=== PATIENT | male | born 1990 | race Caucasian/White ===

== ENCOUNTER 2022-07-03 12:19 | Outpatient (CLI) | payer BC, SELFPAY | END 2022-07-03 12:20 | disposition home or self-care (01) | LOC: AMB 07-12 14:31 | PROVIDERS: Visit Provider Internal Medicine | DX: R55 Syncope and collapse (principal); F10.129 Alcohol abuse with intoxication, unspecified | CPT/HCPCS: A0425; A0427 ==

== ENCOUNTER 2022-07-03 12:34 | Emergency (ER) | payer BC, SELFPAY ==
[2022-07-03] VITALS (37 sets, daily range): BP systolic 106–157; BP diastolic 61–106; PULSE 69–115; RESP 16–22; TEMP 36.3; O2SAT 93–96
[2022-07-03] MEDS: ONDANSETRON 2 MG/ML inj 4 MG IVP (13:21)
[2022-07-03] MEDS: 0.9 % SODIUM CHLORIDE 1000 ml 1,000 ML IV (13:21)
[2022-07-03 13:24] LABS: HCO3 VBG 24 mmol/L (21-28); PCO2 VBG 38 mmHG (40-50); pH VBG 7.404 (7.32-7.43)
[2022-07-03 13:35] LABS: Basophils Absolute Auto 0.02 K/uL (0.00-0.30); Basophils Percent Auto 0.4 % (0.0-3.0); Eosinophils Absolute Auto 0.07 K/uL (0.00-0.50); Eosinophils Percent Auto 1.3 % (0.0-7.0); Hematocrit 41.1 % (37.0-53.0); Hemoglobin* 14.4 gm/dL (13.5-17.5); Immature Granulocytes Abs Auto 0.02 K/uL (0.00-0.30); Immature Granulocytes Pct Auto 0.4 %; Lymphocytes Absolute Auto 1.74 K/uL (0.90-2.90); Lymphocytes Percent Auto 33.5 % (20-44); Mean Corpuscular HGB Conc 35 gm/dL (32-36); Mean Corpuscular Hemoglobin 30 pg (26-34); Mean Corpuscular Volume 86 fL (80-100); Monocytes Percent Auto 5.6 % (0.0-11.0); Neutrophils Absolute Auto 3.06 K/uL (1.7-7.0); Neutrophils Percent Auto 58.8 % (42.0-72.0); Platelet Count* 235 K/uL (140-440); RDW Coefficient of Variation % 12.1 % (11.5-15.5)
[2022-07-03 13:37] LABS: Slide Review Reflex No
[2022-07-03 13:50] LABS: Albumin* 4.2 g/dL (3.3-5.0); Chloride* 109 mmol/L (96-114)
[2022-07-03 13:51] LABS: Potassium* 3.3 mmol/L (3.6-5.1)
[2022-07-03 13:53] LABS: Bilirubin Direct* 0.2 mg/dL (0.0-0.5); Bilirubin Total* 0.6 mg/dL (0.1-1.5); Carbon Dioxide* 21 mmol/L (20-32); Creatinine* 0.7 mg/dL (0.5-1.5); Estimated Glomerular Filt Rate 124 ml/min
[2022-07-03 13:54] LABS: Alanine Aminotransferase* 44 U/L (4-50); Alkaline Phosphatase* 113 U/L (40-150); Aspartate Amino Transferase* 49 U/L (12-35); Blood Urea Nitrogen* 11 mg/dL (5-24); Calcium* 8.4 mg/dL (8.4-10.6); Glucose* 163 mg/dL (60-115); Lipase* 55 U/L (23-300); Total Protein* 6.8 g/dL (6.0-8.3)
[2022-07-03 13:57] LABS: Acetaminophen* < 10.0 ug/mL (10.0-30.0); Salicylate* < 1.0 mg/dL (1.0-10)
[2022-07-03 13:59] LABS: Sodium* 142 mmol/L (135-149)
--- NOTE | 2022-07-03 14:02 | ED.NURSE ---
Pt up ambulatory to BR. Was given UA cup. Pt dropped cup in BR. Urine not obtained. Pt walked back to bed and now resting.
--- NOTE | 2022-07-03 14:45 | ED.NURSE ---
Ambulated to BR with standby assist from security. Pt inquiring about dispo. informed.
[2022-07-03 15:22] LABS: Ethanol* 0.49 % (0.01-0.03)
--- NOTE | 2022-07-03 15:53 | ED.GENADULT ---
HPI - General Adult General Date Seen: 07/03/22 <Cherry Iniguez MD - Last Filed: 07/05/22 19:37> Chief complaint: Alcohol/Intoxication <Cherry Iniguez MD - Last Filed: 07/05/22 19:37> Stated complaint: ETOH <Cherry Iniguez MD - Last Filed: 07/05/22 19:37> Time Seen by Provider: 07/03/22 12:39 <Cherry Iniguez MD - Last Filed: 07/05/22 19:37> Source: EMS and RN notes reviewed <Cherry Iniguez MD - Last Filed: 07/05/22 19:37> Mode of arrival: EMS <Cherry Iniguez MD - Last Filed: 07/05/22 19:37> Limitations: no limitations <Cherry Iniguez MD - Last Filed: 07/05/22 19:37> History of Present Illness HPI narrative: Patient is a 32-year-old male brought in by EMS. Apparently he had called 911 a couple of times and then hung up, then finally connected and said that he wanted a ride to detox. When police got there, he pounded a significant amount of alcohol in front of them. When they got him in the back of their squad car he apparently was reported to be unresponsive and so EMS was called. On arrival here, he does fall asleep but arouses to voice. He is not able to provide any meaningful history however. There is no reported trauma and no visible trauma. Police report that he is staying in an extended stay hotel. No reported overdose. <Cherry Iniguez MD - Last Filed: 07/05/22 19:37> Review of Systems Status of ROS: Reports: unobtainable due to medical condition <Cherry Iniguez MD - Last Filed: 07/05/22 19:37> [facility] Social History: Social History Smoking Status: Unknown if ever smoked <Cherry Iniguez MD - Last Filed: 07/05/22 19:37> Exam Narrative: Exam Narrative: Vital signs as noted above. In general, a somnolent male. Head: Normocephalic, atraumatic. Eyes: Pupils are 7 mm, reactive bilaterally. Conjunctivae are anicteric. ENT: Mucous membranes are moist. Neck: Supple without lymphadenopathy. Heart: Tachycardic and regular. No obvious murmur. Lungs: Clear bilaterally. No increased work of breathing, crackles or wheezes. Abdomen: Soft and seemingly nontender. Nondistended. No organomegaly. Extremities: Well perfused. No edema. Pulses intact. Neurologic: Patient is somnolent, arouses to voice, mumbles. GCS 10. Moves all extremities. Skin: Warm and dry. Well perfused. No visible trauma. <Cherry Iniguez MD - Last Filed: 07/05/22 19:37> Const: Vital Signs, click to edit/add: Vital Signs - 24 hr 07/03/22 12:42 07/03/22 12:57 07/03/22 13:00 Temperature 97.4 F L Pulse Rate 84 89 Pulse Rate [Right Pulse Oximeter] 101 H Respiratory Rate 18 19 18 Blood Pressure 120/83 Blood Pressure [Ri ght Upper Arm] 129/95 H Pulse Oximetry 95 95 93 Oxygen Delivery Ok thod 07/03/22 13:01 07/03/22 13:07 07/03/22 13:05 Temperature Pulse Rate 85 75 Pulse Rate [Right Pulse Oximeter] Respiratory Rate 19 18 Blood Pressure 109/76 Blood Pressure [Ri ght Upper Arm] Pulse Oximetry 93 93 94 Oxygen Delivery Ok thod 07/03/22 13:15 07/03/22 13:20 07/03/22 13:30 Temperature Pulse Rate Pulse Rate [Right Pulse Oximeter] Respiratory Rate 22 20 17 Blood Pressure 147/106 H Blood Pressure [Ri ght Upper Arm] Pulse Oximetry Oxygen Delivery Ok thod 07/03/22 13:35 07/03/22 13:45 07/03/22 14:01 Temperature Pulse Rate 71 Pulse Rate [Right Pulse Oximeter] Respiratory Rate 17 19 20 Blood Pressure 114/84 Blood Pressure [Ri ght Upper Arm] Pulse Oximetry 93 Oxygen Delivery Me thod 07/03/22 14:05 07/03/22 14:15 07/03/22 14:20 Temperature Pulse Rate 69 76 74 Pulse Rate [Right Pulse Oximeter] Respiratory Rate 19 18 18 Blood Pressure 119/86 121/85 Blood Pressure [Ri ght Upper Arm] Pulse Oximetry 93 93 94 Oxygen Delivery Me thod 07/03/22 14:30 07/03/22 14:35 07/03/22 12:36 Temperature Pulse Rate 70 115 H Pulse Rate [Right Pulse Oximeter] Respiratory Rate 17 Blood Pressure 157/82 H Blood Pressure [Ri ght Upper Arm] 106/79 Pulse Oximetry 93 95 Oxygen Delivery Me thod 07/03/22 12:38 07/03/22 12:48 07/03/22 12:58 Temperature Pulse Rate Pulse Rate [Right Pulse Oximeter] 92 87 96 Respiratory Rate 21 19 17 Blood Pressure Blood Pressure [Ri ght Upper Arm] 129/95 H 125/83 120/83 Pulse Oximetry 96 95 95 Oxygen Delivery Me thod 07/03/22 13:03 07/03/22 13:33 07/03/22 16:00 Temperature Pulse Rate 72 Pulse Rate [Right Pulse Oximeter] 74 76 Respiratory Rate 16 17 Blood Pressure Blood Pressure [Ri ght Upper Arm] 109/76 114/84 Pulse Oximetry 95 94 Oxygen Delivery Me thod 07/03/22 16:02 07/03/22 16:15 07/03/22 16:30 Temperature Pulse Rate 70 72 71 Pulse Rate [Right Pulse Oximeter] Respiratory Rate Blood Pressure 108/67 Blood Pressure [Ri ght Upper Arm] Pulse Oximetry 94 94 95 Oxygen Delivery Me thod 07/03/22 16:32 07/03/22 16:45 07/03/22 17:04 Temperature Pulse Rate 72 71 89 Pulse Rate [Right Pulse Oximeter] Respiratory Rate Blood Pressure 110/61 Blood Pressure [Ri ght Upper Arm] Pulse Oximetry 94 95 95 Oxygen Delivery Me thod 07/03/22 17:15 07/03/22 17:30 07/03/22 17:45 Temperature Pulse Rate 76 77 93 Pulse Rate [Right Pulse Oximeter] Respiratory Rate Blood Pressure Blood Pressure [Ri ght Upper Arm] Pulse Oximetry 94 95 96 Oxygen Delivery Me thod Room Air 07/03/22 18:00 07/03/22 18:15 07/03/22 18:30 Temperature Pulse Rate 74 71 73 Pulse Rate [Right Pulse Oximeter] Respiratory Rate Blood Pressure Blood Pressure [Ri ght Upper Arm] Pulse Oximetry 94 94 94 Oxygen Delivery Me thod 07/03/22 18:45 Temperature Pulse Rate 72 Pulse Rate [Right Pulse Oximeter] Respiratory Rate Blood Pressure Blood Pressure [Ri ght Upper Arm] Pulse Oximetry 95 Oxygen Delivery Me thod <Cherry H Block, MD - Last Filed: 07/05/22 19:37> Vital Signs, click to edit/add: Vital Signs - 24 hr 07/03/22 12:42 07/03/22 12:57 07/03/22 13:00 Temperature 97.4 F L Pulse Rate 84 89 Pulse Rate [Right Pulse Oximeter] 101 H Respiratory Rate 18 19 18 Blood Pressure 120/83 Blood Pressure [Ri ght Upper Arm] 129/95 H Pulse Oximetry 95 95 93 Oxygen Delivery Me thod 07/03/22 13:01 07/03/22 13:07 07/03/22 13:05 Temperature Pulse Rate 85 75 Pulse Rate [Right Pulse Oximeter] Respiratory Rate 19 18 Blood Pressure 109/76 Blood Pressure [Ri ght Upper Arm] Pulse Oximetry 93 93 94 Oxygen Delivery Me thod 07/03/22 13:15 07/03/22 13:20 07/03/22 13:30 Temperature Pulse Rate Pulse Rate [Right Pulse Oximeter] Respiratory Rate 22 20 17 Blood Pressure 147/106 H Blood Pressure [Ri ght Upper Arm] Pulse Oximetry Oxygen Delivery Me thod 07/03/22 13:35 07/03/22 13:45 07/03/22 14:01 Temperature Pulse Rate 71 Pulse Rate [Right Pulse Oximeter] Respiratory Rate 17 19 20 Blood Pressure 114/84 Blood Pressure [Ri ght Upper Arm] Pulse Oximetry 93 Oxygen Delivery Me thod 07/03/22 14:05 07/03/22 14:15 07/03/22 14:20 Temperature Pulse Rate 69 76 74 Pulse Rate [Right Pulse Oximeter] Respiratory Rate 19 18 18 Blood Pressure 119/86 121/85 Blood Pressure [Ri ght Upper Arm] Pulse Oximetry 93 93 94 Oxygen Delivery Me thod 07/03/22 14:30 07/03/22 14:35 07/03/22 12:36 Temperature Pulse Rate 70 115 H Pulse Rate [Right Pulse Oximeter] Respiratory Rate 17 Blood Pressure 157/82 H Blood Pressure [Ri ght Upper Arm] 106/79 Pulse Oximetry 93 95 Oxygen Delivery Me thod 07/03/22 12:38 07/03/22 12:48 07/03/22 12:58 Temperature Pulse Rate Pulse Rate [Right Pulse Oximeter] 92 87 96 Respiratory Rate 21 19 17 Blood Pressure Blood Pressure [Ri ght Upper Arm] 129/95 H 125/83 120/83 Pulse Oximetry 96 95 95 Oxygen Delivery Me thod 07/03/22 13:03 07/03/22 13:33 07/03/22 16:00 Temperature Pulse Rate 72 Pulse Rate [Right Pulse Oximeter] 74 76 Respiratory Rate 16 17 Blood Pressure Blood Pressure [Ri ght Upper Arm] 109/76 114/84 Pulse Oximetry 95 94 Oxygen Delivery Me thod 07/03/22 16:02 07/03/22 16:15 07/03/22 16:30 Temperature Pulse Rate 70 72 71 Pulse Rate [Right Pulse Oximeter] Respiratory Rate Blood Pressure 108/67 Blood Pressure [Ri ght Upper Arm] Pulse Oximetry 94 94 95 Oxygen Delivery Me thod 07/03/22 16:32 07/03/22 16:45 07/03/22 17:04 Temperature Pulse Rate 72 71 89 Pulse Rate [Right Pulse Oximeter] Respiratory Rate Blood Pressure 110/61 Blood Pressure [Ri ght Upper Arm] Pulse Oximetry 94 95 95 Oxygen Delivery Me thod 07/03/22 17:15 07/03/22 17:30 07/03/22 17:45 Temperature Pulse Rate 76 77 93 Pulse Rate [Right Pulse Oximeter] Respiratory Rate Blood Pressure Blood Pressure [Ri ght Upper Arm] Pulse Oximetry 94 95 96 Oxygen Delivery Me thod Room Air 07/03/22 18:00 07/03/22 18:15 07/03/22 18:30 Temperature Pulse Rate 74 71 73 Pulse Rate [Right Pulse Oximeter] Respiratory Rate Blood Pressure Blood Pressure [Ri ght Upper Arm] Pulse Oximetry 94 94 94 Oxygen Delivery Me thod 07/03/22 18:45 Temperature Pulse Rate 72 Pulse Rate [Right Pulse Oximeter] Respiratory Rate Blood Pressure Blood Pressure [Ri ght Upper Arm] Pulse Oximetry 95 Oxygen Delivery Me thod <Ok Nguyen MD - Last Filed: 07/03/22 23:51> Documenting provider has reviewed patient's vital signs: yes <Cherry Iniguez MD - Last Filed: 07/05/22 19:37> Course Course Hospital Course: On arrival, patient was placed on the monitor and oximetry. Labs were drawn. Will monitor closely at this time. As of right now, he is rousable, does not seem to need airway management. Blood alcohol returned at 0.49. Other labs fairly unremarkable. Potassium slightly low at 3.3, blood glucose 163. AST was mildly elevated at 49, consistent with his alcohol use. ALT was normal. Remainder of his LFTs were unremarkable. Lipase was normal at 55. Tylenol and alcohol levels were undetectable. Patient slept here for quite a while, he did wake up several hours into his ER course and state that he wanted to go home. I had a conversation with him at that time. He said that he no longer wanted to go to detox, he just wanted to leave. He was still intoxicated at that point, despite the fact that he was ambulatory he was slurring his words and not appropriate for independent discharge home. He did not have anyone who could come be responsible for him, he says he does not have any friends or family in the area. He is staying by himself in his motel. I discussed with him that if he chose to leave the emergency department I would call the police to pick him up as having him walk out in the cold and dark by himself was not safe. He seem to except that as a reason to stay in the emergency department and since then has been cooperative with staying in his room. At this time, we are looking into detox facilities that would accept him on a hold. <Cherry Iniguez MD - Last Filed: 07/05/22 19:37> Reevaluation(s) Reevaluation #1: BAL now 0.33. He is being assessed for Detox. <Ok Nguyen MD - Last Filed: 07/03/22 23:51> Time: 21:04 <Ok Nguyen MD - Last Filed: 07/03/22 23:51> Reevaluation #2: Pt more agitated. [place] police on the scene. <Ok Nguyen MD - Last Filed: 07/03/22 23:51> Time: 21:45 <Ok Nguyen MD - Last Filed: 07/03/22 23:51> Reevaluation #3: Agitation worsening. Risking safety of all. Zyprexa 10 mg given IM. Pt restrained for his own safety. <Ok Nguyen MD - Last Filed: 07/03/22 23:51> Time: 22:44 <Ok Nguyen MD - Last Filed: 07/03/22 23:51> Additional Reevaluation(s): Pt settled down and did not need the Zyprexa or restraints. Transferring now to [place]. <Ok Nguyen MD - Last Filed: 07/03/22 23:51> Vital Signs Vital signs: Initial Vital Signs Blood Pressure 106/79 07/03/22 12:36 Blood Pressure Mean 88 07/03/22 12:36 Vital Signs Blood Pressure 106/79 07/03/22 12:36 Temperature 97.4 F L 07/03/22 12:42 Pulse Rate 72 07/03/22 18:45 Respiratory Rate 17 07/03/22 14:30 Blood Pressure 110/61 07/03/22 16:32 Pulse Oximetry 95 07/03/22 18:45 Oxygen Delivery Method 07/03/22 17:15 <Cherry Iniguez MD - Last Filed: 07/05/22 19:37> Initial Vital Signs Blood Pressure 106/79 07/03/22 12:36 Blood Pressure Mean 88 07/03/22 12:36 Vital Signs Blood Pressure 106/79 07/03/22 12:36 Temperature 97.4 F L 07/03/22 12:42 Pulse Rate 72 07/03/22 18:45 Respiratory Rate 17 07/03/22 14:30 Blood Pressure 110/61 07/03/22 16:32 Pulse Oximetry 95 07/03/22 18:45 Oxygen Delivery Method 07/03/22 17:15 <Ok Nguyen MD - Last Filed: 07/03/22 23:51> Medical Decision Making MDM Narrative Medical decision making narrative: Pt presents intoxicated and semi-obtunded. Found to be intoxicated. BAL too high to go to detox. Pt observed until BAL acceptable. Pt was agitated at times. Police called. Pt calmed down and went to detox. <Ok Nguyen MD - Last Filed: 07/03/22 23:51> Differential Diagnosis Differential Diagnosis: Intoxication, Metabolic abnormality, Drug Ingestion, Sepsis. <Ok Nguyen MD - Last Filed: 07/03/22 23:51> Lab Data Labs: Lab Results 07/03/22 07/03/22 07/03/22 Range/Units 12:45 12:45 12:45 WBC 5.20 (4.50-11.00) K/uL RBC 4.80 (4.30-5.90) m/uL Hgb 14.4 (13.5-17.5) gm/dL Hct 41.1 (37.0-53.0) % MCV 86 (80-100) fL MCH 30 (26-34) pg MCHC 35 (32-36) gm/dL RDW Coeff of Queenie 12.1 (11.5-15.5) % Plt Count 235 (140-440) K/uL Neut % (Auto) 58.8 (42.0-72.0) % Lymph % (Auto) 33.5 (20-44) % [place] % (Auto) 5.6 (0.0-11.0) % Eos % (Auto) 1.3 (0.0-7.0) % Baso % (Auto) 0.4 (0.0-3.0) % Neut # (Auto) 3.06 (1.7-7.0) K/uL Lymph # (Auto) 1.74 (0.90-2.90) K/uL [place] # (Auto) 0.30 (0.00-0.90) K/UL Eos # (Auto) 0.07 (0.00-0.50) K/uL Baso # (Auto) 0.02 (0.00-0.30) K/uL VBG pH 7.404 (7.32-7.43) VBG pCO2 38 L (40-50) mmHG VBG pO2 163.0 H (25-47) mmHG VBG HCO3 24 (21-28) mmol/L Sodium 142 (135-149) mmol/L Potassium 3.3 L (3.6-5.1) mmol/L Chloride 109 (96-114) mmol/L Carbon Dioxide 21 (20-32) mmol/L BUN 11 (5-24) mg/dL Creatinine 0.7 (0.5-1.5) mg/dL Estimated GFR 124 ml/min Glucose 163 H (60-115) mg/dL Calcium 8.4 (8.4-10.6) mg/dL Total Bilirubin 0.6 (0.1-1.5) mg/dL Direct Bilirubin 0.2 (0.0-0.5) mg/dL AST 49 H (12-35) U/L ALT 44 (4-50) U/L Alkaline Phosphatase 113 (40-150) U/L Total Protein 6.8 (6.0-8.3) g/dL Albumin 4.2 (3.3-5.0) g/dL Lipase 55 (23-300) U/L Salicylates < 1.0 L (1.0-10) mg/dL Acetaminophen < 10.0 L (10.0-30.0) ug/mL Ethyl Alcohol (0.01-0.03) % 07/03/22 07/03/22 Range/Units 12:45 20:20 WBC (4.50-11.00) K/uL RBC (4.30-5.90) m/uL Hgb (13.5-17.5) gm/dL Hct (37.0-53.0) % MCV (80-100) fL MCH (26-34) pg MCHC (32-36) gm/dL RDW Coeff of Queenie (11.5-15.5) % Plt Count (140-440) K/uL Neut % (Auto) (42.0-72.0) % Lymph % (Auto) (20-44) % Carolina % (Auto) (0.0-11.0) % Eos % (Auto) (0.0-7.0) % Baso % (Auto) (0.0-3.0) % Neut # (Auto) (1.7-7.0) K/uL Lymph # (Auto) (0.90-2.90) K/uL [place] # (Auto) (0.00-0.90) K/UL Eos # (Auto) (0.00-0.50) K/uL Baso # (Auto) (0.00-0.30) K/uL VBG pH (7.32-7.43) VBG pCO2 (40-50) mmHG VBG pO2 (25-47) mmHG VBG HCO3 (21-28) mmol/L Sodium (135-149) mmol/L Potassium (3.6-5.1) mmol/L Chloride (96-114) mmol/L Carbon Dioxide (20-32) mmol/L BUN (5-24) mg/dL Creatinine (0.5-1.5) mg/dL Estimated GFR ml/min Glucose (60-115) mg/dL Calcium (8.4-10.6) mg/dL Total Bilirubin (0.1-1.5) mg/dL Direct Bilirubin (0.0-0.5) mg/dL AST (12-35) U/L ALT (4-50) U/L Alkaline Phosphatase (40-150) U/L Total Protein (6.0-8.3) g/dL Albumin (3.3-5.0) g/dL Lipase (23-300) U/L Salicylates (1.0-10) mg/dL Acetaminophen (10.0-30.0) ug/mL Ethyl Alcohol 0.49 H* 0.33 H* (0.01-0.03) % <Cherry Iniguez MD - Last Filed: 07/05/22 19:37> Lab Results 07/03/22 07/03/22 07/03/22 Range/Units 12:45 12:45 12:45 WBC 5.20 (4.50-11.00) K/uL RBC 4.80 (4.30-5.90) m/uL Hgb 14.4 (13.5-17.5) gm/dL Hct 41.1 (37.0-53.0) % MCV 86 (80-100) fL MCH 30 (26-34) pg MCHC 35 (32-36) gm/dL RDW Coeff of Queenie 12.1 (11.5-15.5) % Plt Count 235 (140-440) K/uL Neut % (Auto) 58.8 (42.0-72.0) % Lymph % (Auto) 33.5 (20-44) % [place] % (Auto) 5.6 (0.0-11.0) % Eos % (Auto) 1.3 (0.0-7.0) % Baso % (Auto) 0.4 (0.0-3.0) % Neut # (Auto) 3.06 (1.7-7.0) K/uL Lymph # (Auto) 1.74 (0.90-2.90) K/uL [place] # (Auto) 0.30 (0.00-0.90) K/UL Eos # (Auto) 0.07 (0.00-0.50) K/uL Baso # (Auto) 0.02 (0.00-0.30) K/uL VBG pH 7.404 (7.32-7.43) VBG pCO2 38 L (40-50) mmHG VBG pO2 163.0 H (25-47) mmHG VBG HCO3 24 (21-28) mmol/L Sodium 142 (135-149) mmol/L Potassium 3.3 L (3.6-5.1) mmol/L Chloride 109 (96-114) mmol/L Carbon Dioxide 21 (20-32) mmol/L BUN 11 (5-24) mg/dL Creatinine 0.7 (0.5-1.5) mg/dL Estimated GFR 124 ml/min Glucose 163 H (60-115) mg/dL Calcium 8.4 (8.4-10.6) mg/dL Total Bilirubin 0.6 (0.1-1.5) mg/dL Direct Bilirubin 0.2 (0.0-0.5) mg/dL AST 49 H (12-35) U/L ALT 44 (4-50) U/L Alkaline Phosphatase 113 (40-150) U/L Total Protein 6.8 (6.0-8.3) g/dL Albumin 4.2 (3.3-5.0) g/dL Lipase 55 (23-300) U/L Salicylates < 1.0 L (1.0-10) mg/dL Acetaminophen < 10.0 L (10.0-30.0) ug/mL Ethyl Alcohol (0.01-0.03) % 07/03/22 07/03/22 Range/Units 12:45 20:20 WBC (4.50-11.00) K/uL RBC (4.30-5.90) m/uL Hgb (13.5-17.5) gm/dL Hct (37.0-53.0) % MCV (80-100) fL MCH (26-34) pg MCHC (32-36) gm/dL RDW Coeff of Queenie (11.5-15.5) % Plt Count (140-440) K/uL Neut % (Auto) (42.0-72.0) % Lymph % (Auto) (20-44) % [place] % (Auto) (0.0-11.0) % Eos % (Auto) (0.0-7.0) % Baso % (Auto) (0.0-3.0) % Neut # (Auto) (1.7-7.0) K/uL Lymph # (Auto) (0.90-2.90) K/uL [place] # (Auto) (0.00-0.90) K/UL Eos # (Auto) (0.00-0.50) K/uL Baso # (Auto) (0.00-0.30) K/uL VBG pH (7.32-7.43) VBG pCO2 (40-50) mmHG VBG pO2 (25-47) mmHG VBG HCO3 (21-28) mmol/L Sodium (135-149) mmol/L Potassium (3.6-5.1) mmol/L Chloride (96-114) mmol/L Carbon Dioxide (20-32) mmol/L BUN (5-24) mg/dL Creatinine (0.5-1.5) mg/dL Estimated GFR ml/min Glucose (60-115) mg/dL Calcium (8.4-10.6) mg/dL Total Bilirubin (0.1-1.5) mg/dL Direct Bilirubin (0.0-0.5) mg/dL AST (12-35) U/L ALT (4-50) U/L Alkaline Phosphatase (40-150) U/L Total Protein (6.0-8.3) g/dL Albumin (3.3-5.0) g/dL Lipase (23-300) U/L Salicylates (1.0-10) mg/dL Acetaminophen (10.0-30.0) ug/mL Ethyl Alcohol 0.49 H* 0.33 H* (0.01-0.03) % <Ok Nguyen MD - Last Filed: 07/03/22 23:51> Discharge Plan Discharge Clinical Impression: Alcoholic intoxication <Cherry Iniguez MD - Last Filed: 07/05/22 19:37> Patient Disposition: Admitted As Inpatient <Cherry Iniguez MD - Last Filed: 07/05/22 19:37> Condition: Stable <Cherry Iniguez MD - Last Filed: 02/26/23 19:37> Activity Level: No Restrictions <Cherry Iniguez MD - Last Filed: 07/05/22 19:37> No Restrictions <Ok Nguyen MD - Last Filed: 07/03/22 23:51> Discharge Diet: Regular <Cherry Iniguez MD - Last Filed: 07/05/22 19:37> Regular <Ok Nguyen MD - Last Filed: 07/03/22 23:51>
--- NOTE | 2022-07-03 18:52 | ED.NURSE ---
Pt requesting again to leave. MD at bedside.
--- NOTE | 2022-07-03 19:16 | ED.NURSE ---
Pt agrees to stay in ED after speaking with MD. Ambulatory to BR, tolerates well. Sleeping at this time. Call light within reach.
--- NOTE | 2022-07-03 20:35 | ED.NURSE ---
Pt eating sandwich, drinking water. Sitting at edge of bed, watching TV.
[2022-07-03 20:59] LABS: Ethanol* 0.33 % (0.01-0.03)
--- NOTE | 2022-07-03 21:10 | ED.NURSE ---
ETOH redraw faxed to [facility].
--- NOTE | 2022-07-03 22:29 | ED.NURSE ---
Patient upset about having to go to detox. He states he has a lot of thing to do on Wednesday for his new job. PD called for support. Patient informed he was put on a hold and the plan was to get him to detox. Continued to be upset stating you are ruining my life. Patient removed IV per himself. PD remains present for support. Patient resting on cot at this time.
--- NOTE | 2022-07-03 22:40 | ED.NURSE ---
Information refaxed to [facility]. They state they will review information at 2300.
--- NOTE | 2022-07-03 23:32 | ED.NURSE ---
[facility] accepted patient.
--- NOTE | 2022-07-04 00:21 | ED.NURSE ---
Late entry 0000: Patient calm and cooperative. Transport arrived. Patient transferred to [facility] via S ambulance. Face sheet, transfer consent, pcs form, 72 hour hold, ED visit report and MD note sent with patient. [facility] updated at time of transport.
== END 2022-07-04 | disposition admitted as inpatient to this hospital (09) ==
PROVIDERS: Emergency Medicine; Emergency Provider Internal Medicine
DX: F10.129 Alcohol abuse with intoxication, unspecified (principal)
CPT/HCPCS: 36415; 80048; 80076; 80143; 80179; 80306; 81001; 82077; 82803; 83690; 85025; 94761; 96374; 99283; J2405; J7030

== ENCOUNTER 2022-07-03 23:53 | Outpatient (CLI) | payer BC, SELFPAY | END 2022-07-03 23:54 | disposition home or self-care (01) | LOC: AMB 07-07 09:28 | PROVIDERS: Visit Provider Internal Medicine | DX: F10.129 Alcohol abuse with intoxication, unspecified (principal) | CPT/HCPCS: A0425; A0428 ==